=== PATIENT | male | born 1990 | race Caucasian/White ===

== ENCOUNTER 2019-08-02 09:28 | Emergency (ER) | payer BC ==
[2019-08-02 09:41] VITALS: BP 149/86
--- NOTE | 2019-08-02 10:04 | UC ---
FLU HPI - HPI Summary HPI Summary: 29 yo with malaise and mild sore throat x 3 days, with onset of fever and increasing cough last night. - History of Current Complaint Chief Complaint: UCRespiratory Stated Complaint: FLU LIKE SYMPTOMS Time Seen by Provider: 08/02/19 09:56 Hx Obtained From: Patient Onset/Duration: Gradual Onset, Lasting Days Severity Currently: Mild Severity Initially: Moderate Pain Intensity: 5 Associated Signs & Symptoms: Positive: Fever, Myalgia, Cough, Sore Throat Related Hx: Possible Flu/Infectious Exposure - Risk Factors Influenza Risk Factors: Negative - Allergy/Home Medications Allergies/Adverse Reactions: Allergies Allergy/AdvReac Type Severity Reaction Status Date / Time ENVIRONMENT/SEASONAL Allergy CONGESTION, Uncoded 08/02/19 09:41 ALLERGIES RUNNY NOSE, ITCHY WATERY EYES Home Medications: Home Medications Dm/PE/Acetaminophen/Doxylamine [[place] Plus Severe] 1 cap PO ONCE PRN [History Confirmed 08/02/19] PMH/Surg Hx/FS Hx/Imm Hx Previously Healthy: Yes - Surgical History Surgical History: Yes Surgery Procedure, Year, and Place: MULTIPLE SKIN BIOPSIES, OFFICE ( [facility] RECENT 2011). 2009 POLYP REMOVED FROM LEFT MAXILLARY SINUS, [facility]. L knee surgery - Family History Known Family History: Positive: Other - melanoma in parent - Social History Occupation: Employed Full-time Lives: With Family Alcohol Use: Occasionally Substance Use Type: None Smoking Status (MU): Never Smoked Tobacco Review of Systems All Other Systems Reviewed And Are Negative: Yes Constitutional: Positive: Fever, Fatigue Skin: Positive: Negative Eyes: Positive: Negative ENT: Positive: Sore Throat Respiratory: Positive: Cough. Negative: Shortness Of Breath Cardiovascular: Negative: Chest Pain Gastrointestinal: Positive: Negative Genitourinary: Positive: Negative Motor: Positive: Negative Neurovascular: Positive: Negative Musculoskeletal: Positive: Negative Neurological/Mental Status: Positive: Negative Psychological: Positive: Negative Is Patient Immunocompromised?: No Physical Exam Triage Information Reviewed: Yes Appearance: Ill-Appearing - looks mildly unwell Vital Signs: Initial Vital Signs Temp 100.3 F 08/02/19 09:37 Pulse 109 08/02/19 09:37 Resp 18 08/02/19 09:37 BP 149/86 08/02/19 09:37 Pulse Ox 100 08/02/19 09:37 Eye Exam: Normal ENT: Positive: Pharyngeal erythema. Negative: Tonsillar swelling, Tonsillar exudate Neck exam: Normal Neck: Positive: Supple, Nontender, No Lymphadenopathy Respiratory: Positive: Lungs clear, Normal breath sounds Cardiovascular: Positive: RRR, No Murmur Musculoskeletal Exam: Normal Neurological Exam: Normal Psychological Exam: Normal Skin Exam: Normal Diagnostics - Laboratory Lab Results: rapid flu positive--A Flu Course/Dx - Course Course Of Treatment: continue symptomatic treatment of influenza A - Differential Dx/Diagnosis Differential Diagnosis/HQI/PQRI: Influenza, Upper Respiratory Infection Provider Diagnosis: Influenza A Discharge ED - Sign-Out/Discharge Documenting (check all that apply): Patient Departure All imaging exams completed and their final reports reviewed: No Studies - Discharge Plan Condition: Stable Disposition: HOME Patient Education Materials: Influenza (ED) Forms: *Work Release Referrals: No Primary Care Phys,NOPCP [Primary Care Provider] - Additional Instructions: Use ibuprofen 600mg every 6 hours and/or acteminophen 650mg alternatively for control of muscle aches and fever. Increase rest and fluids. Off work until fever free for 24 hours. - Billing Disposition and Condition Condition: STABLE Disposition: Home
[2019-08-02 10:13] LABS: Influenza A Molecular POSITIVE (Negative)
== END 2019-08-02 10:26 | disposition home or self-care (01) ==
LOC: UCEAST 09:28
DX: J10.1 Influenza due to other identified influenza virus with other respiratory manifestations (principal); Z91.09 Other allergy status, other than to drugs and biological substances
CPT/HCPCS: 99201; G0463